=== PATIENT | male | born 1950 | race Caucasian/White ===

== ENCOUNTER 2016-12-01 09:09 | Emergency (ER) | payer MEDICARE ==
[2016-12-01] MEDS ORDERED: Aspirin Low Dose CHEW TAB* 81 MG PO ONE (09:35)
[2016-12-01] MEDS ORDERED: Aspirin Low Dose CHEW TAB* 81 MG ONE (09:38)
[2016-12-01 09:50] VITALS: BP 164/99
--- NOTE | 2016-12-01 09:52 | UC ---
Cardiac HPI - HPI Summary HPI Summary: elevated blood pressure x 1 day pt. had some floaters on his vision , checked his blood pressure and was very high , felt some left side chest pressure and his blood pressure cont. 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 Negative: Anxiety, Recent Stress, Headaches, Numbness, Tingling, Weakness, Dizziness, SOB , Swelling, Syncope, Fever, Diaphoresis, Nausea/Vomiting, Palpitations, Cough, Hemoptysis, Back Pain, Abdominal Pain, Calf Pain/Swelling - Allergy/Home Medications Allergies/Adverse Reactions: Allergies Allergy/AdvReac Type Severity Reaction Status Date / Time Atorvastatin [From Lipitor] Allergy Muscle Ache Verified 12/01/16 09:14 Home Medications: Home Medications Aspirin [Aspirin 81 MG TAB] 81 mg PO BEDTIME 12/01/16 [History Confirmed ] Meloxicam(NF) [Mobic(NF)] 15 mg PO BEDTIME 12/01/16 [History Confirmed 12/01/16] Multiple Vitamin [Multivitamins] 1 cap PO DAILY 12/01/16 [History Confirmed ] Omeprazole CAP* [Prilosec CAP* 20 MG] 20 mg PO DAILY 12/01/16 [History Confirmed 12/01/16] Pravastatin Sodium [Pravachol] 40 mg PO DAILY 12/01/16 [History Confirmed ] PMH/Surg Hx/FS Hx/Imm Hx Cardiovascular History: Other - high cholesterol Other Cardiovascular History: ELEVATED COLESTROL GI/ History: Gastroesophageal Reflux - Surgical History Surgical History: Yes Surgery Procedure, Year, and Place: appy - Family History Known Family History: Negative: Diabetes - Social History Alcohol Use: Weekly Alcohol Amount: every other day Substance Use Type: None Smoking Status (MU): Never Smoked Tobacco Review of Systems Constitutional: Negative Skin: Negative Eyes: Negative ENT: Negative Respiratory: Negative Cardiovascular: Chest Pain Gastrointestinal: Negative Genitourinary: Negative All Other Systems Reviewed And Are Negative: Yes Physical Exam Triage Information Reviewed: Yes Appearance: Well-Appearing, No Pain Distress, Obese Vital Signs: Initial Vital Signs Temp 97.7 F 12/01/16 09:17 Pulse 77 12/01/16 09:17 Resp 16 12/01/16 09:17 BP 177/96 12/01/16 09:17 Pulse Ox 99 12/01/16 09:17 Vital Signs Reviewed: Yes Eyes: Positive: Conjunctiva Clear ENT: Positive: Normal ENT inspection, Hearing grossly normal, Pharynx normal Neck: Positive: Supple, Nontender, No Lymphadenopathy Respiratory: Positive: Chest non-tender, Lungs clear, Normal breath sounds Cardiovascular: Positive: RRR, No Murmur, Pulses Normal Abdominal Exam: Normal Abdomen Description: Positive: Nontender, No Organomegaly, Soft. Negative: CVA Tenderness (R), CVA Tenderness (L), Distended, Guarding Bowel Sounds: Positive: Present Skin Exam: Normal - Assessment/Plan Course Of Treatment: T wave inversion led 3/AVF, elevated BP. will have the pt go to [place] ED for eval and R/O NSTMI. 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 chest pain Discharge - Discharge Plan Condition: Good Disposition: TRANS [facility] OF CARE FAC Patient Education Materials: Hypertension (ED) Additional Instructions: T wave inversion led 3 and AVF concern about ischemia will have you go to [facility] ED for evaluation
== END 2016-12-01 09:50 | disposition short-term general hospital (02) ==
LOC: UCCORT 09:09
DX: R07.89 Other chest pain (principal); R03.0 Elevated blood-pressure reading, without diagnosis of hypertension; H43.399 Other vitreous opacities, unspecified eye; E78.00 Pure hypercholesterolemia, unspecified; K21.9 Gastro-esophageal reflux disease without esophagitis; E66.9 Obesity, unspecified; Z88.8 Allergy status to other drugs, medicaments and biological substances
CPT/HCPCS: 93005; 99202; A9270-GY; G0463